=== PATIENT | male | born 1970 | race Caucasian/White ===

== ENCOUNTER 2023-10-12 17:55 | Emergency (ER) | payer SELFPAY ==
[~2023-10-12] VITALS: Ht 156.2 cm; Wt 65.3 kg
[2023-10-12 18:18] VITALS: BP 114/60; PULSE 89; RESP 18; TEMP 97.7; O2SAT 98
[2023-10-12] MEDS ORDERED: ATA25 PO (18:48)
[2023-10-12] MEDS ORDERED: BACTO TP (18:48)
[2023-10-12 19:26] VITALS: BP 116/62; PULSE 79; RESP 18; TEMP 97.7; O2SAT 99
--- NOTE | 2023-10-12 19:26 | NUR ---
Patient discharged. Written and verbal after care instructions given and explained. Patient alert, oriented and verbalized understanding of instructions. Ambulatory with steady gait. All questions addressed prior to discharge. Patient advised to follow up with PMD. Rx of atarax and mupirocin given. Patient educated on indication of medication including possible reaction and side effects. Opportunity to ask questions provided and answered.
== END 2023-10-12 19:26 | disposition home or self-care (01) ==
LOC: MED 17:55
DX: R21 Rash and other nonspecific skin eruption (principal); Z79.899 Other long term (current) drug therapy
CPT/HCPCS: 99283